=== PATIENT | female | born 1995 ===

== ENCOUNTER 2016-08-31 21:05 | Emergency (ER) | payer BC, MEDICAID ==
[2016-08-31 21:13] VITALS: BP 118/67; PULSE 79; RESP 16; TEMP 98.2; O2SAT 100
--- NOTE | 2016-08-31 21:30 | ED PDOC ---
HPI: Eye Injury/Pain Time Seen by Provider: 08/31/16 21:20 Chief Complaint (Nursing): Eye Problem Chief Complaint (Provider): Eye irritation, throat pain History Per: Patient History/Exam Limitations: no limitations Onset/Duration Of Symptoms: Days Current Symptoms Are (Timing): Still Present Injury To Eye?: No Severity: Moderate Quality: "Pain" Wears Contact Lens?: No Associated Symptoms: Itching, Discharge From Eye Additional History Per: Patient Additional Complaint(s): The pt is a 20yo female, presents to ED for evaluation of b/l eye irritation with associated throat itchiness for the past couple days. Pt reports she was abroad in [place] and states she "caught an eye infection." She reports visiting a pharmacy and getting Optrex antibacterial eye ointment (chloramphenical) which provided her some relief. Pt reports redness to her eyes as well as discharge b/l. She additionally reports itchiness to her throat with pain while swallowing. She denies any nausea, vomiting, diarrhea, cough. Also denies any history of allergies. Currently offers no additional medical complaints. Past Medical History Reviewed: Historical Data, Nursing Documentation, Vital Signs Vital Signs: Last Vital Signs Temp 98.2 F 08/31/16 21:10 Pulse 79 08/31/16 21:10 Resp 16 08/31/16 21:10 BP 118/67 08/31/16 21:10 Pulse Ox 100 08/31/16 21:10 - Medical History PMH: No Chronic Diseases - Surgical History Surgical History: No Surg Hx - Family History Family History: States: Unknown Family Hx - Home Medications Home Medications: Ambulatory Orders Medication Instructions Recorded Cetirizine HCl [Zyrtec] 10 mg PO DAILY #15 capsule 08/31/16 Ibuprofen [Motrin] 600 mg PO Q8 PRN #21 tab 08/31/16 Olopatadine 0.1% Opht [Patanol 5 1 drop BOTHEYES BID #1 bottle 08/31/16 Ml] Polymyxin/Trimethoprim Sulfate 1 drop BOTHEYES Q3 #1 bottle 08/31/16 [Polytrim Ophth Soln] - Allergies Allergies/Adverse Reactions: Allergies Allergy/AdvReac Type Severity Reaction Status Date / Time No Known Allergies Allergy Verified 08/31/16 21:10 Review of Systems ROS Statement: Except As Marked, All Systems Reviewed And Found Negative Constitutional: Negative for: Fever Eyes: Positive for: Pain, Redness ENT: Positive for: Throat Pain (itchiness) Respiratory: Negative for: Cough Gastrointestinal: Negative for: Nausea, Vomiting, Diarrhea Physical Exam - Reviewed Nursing Documentation Reviewed: Yes Vital Signs Reviewed: Yes - Physical Exam Appears: Positive for: Well, Non-toxic, No Acute Distress Head Exam: Positive for: ATRAUMATIC, NORMAL INSPECTION, NORMOCEPHALIC Skin: Positive for: Normal Color, Warm Eye Exam: Positive for: EOMI, PERRL, Conjunctival injection (b/l) ENT: Negative for: Pharyngeal Erythema, Tonsillar Exudate, Tonsillar Swelling Neck: Positive for: Normal, Supple Cardiovascular/Chest: Positive for: Regular Rate, Rhythm Respiratory: Positive for: Normal Breath Sounds. Negative for: Respiratory Distress Neurologic/Psych: Positive for: Alert, Oriented - ECG O2 Sat by Pulse Oximetry: 100 (RA) Pulse Ox Interpretation: Normal - Progress ED Course And Treament: RAPID STREP NEG Medical Decision Making Medical Decision Making: Time: 2129 Impression: B/l eye irritation, throat pain Plan: -- Motrin 600 mg PO -- Rapid strep --Reassess Scribe Attestation: All records were documented by Mirta Roche, acting as a Scribe for [employer]. Provider Scribe Attestation: All medical record entries made by the Scribe were at my direction and personally dictated by me. I have reviewed the chart and agree that the record accurately reflects my personal performance of the history, physical exam, medical decision making, and the department course for this patient. I have also personally directed, reviewed, and agree with the discharge instructions and disposition. Disposition - Clinical Impression Clinical Impression: Conjunctivitis, Pharyngitis - Patient ED Disposition Is Patient to be Admitted: No - Disposition Referrals: [facility] [Outside] Disposition: Routine/Home Disposition Time: 22:42 Condition: FAIR Prescriptions: Cetirizine HCl [Zyrtec] 10 mg PO DAILY #15 capsule Ibuprofen [Motrin] 600 mg PO Q8 PRN #21 tab PRN Reason: Pain, Moderate (4-7) Olopatadine 0.1% Opht [Patanol 5 Ml] 1 drop BOTHEYES BID #1 bottle Polymyxin/Trimethoprim Sulfate [Polytrim Ophth Soln] 1 drop BOTHEYES Q3 #1 bottle Instructions: Conjunctivitis (ED), Pharyngitis (ED) Forms: [facility] ED School/Work Excuse
== END 2016-08-31 22:57 | disposition home or self-care (01) ==
LOC: H.ER 21:05
DX: H10.9 Unspecified conjunctivitis (principal); J02.9 Acute pharyngitis, unspecified